=== PATIENT | female | born 1990 | race Caucasian/White ===

== ENCOUNTER → 2017-07-15 | Outpatient (CLI) | payer OTHER ==
--- NOTE | 2017-07-15 10:45 | XR ---
EXAMINATION TYPE: XR chest 2V DATE OF EXAM: 07/15/2017 COMPARISON: NONE TECHNIQUE: PA and lateral views submitted. HISTORY: Cough FINDINGS: The lungs are clear and there is no pneumothorax, pleural effusion, or focal pneumonia. IMPRESSION: 1. No acute process.
== END | disposition home or self-care (01) ==
LOC: RADXRMAIN 10:31
PROVIDERS: ATTEND Family Medicine
DX: R05 Cough (principal)
CPT/HCPCS: 71046

== ENCOUNTER → 2018-04-07 | Outpatient (CLI) | payer OTHER ==
--- NOTE | 2018-04-07 11:05 | US ---
EXAMINATION TYPE: US OB >= 14 wk fetus DATE OF EXAM: 04/07/2018 COMPARISON: None CLINICAL HISTORY: 036.63X0 Large for dates 3rd trimesterSize >D TECHNIQUE: Transabdominal (TA) GESTATIONAL AGE / DATING Physician Established: (39 weeks/0 days) EDC: 04/14/2018 Dates by Current Scan: (38 weeks/1 days) EDC: 04/20/2018 Beta HCG (if available): Not available at this time SURVEY IUP: Single PLACENTA: Fundal PREVIA: No Previa JED: 23.5 cm Polyhydramnios CERVICAL LENGTH (transabdominal: norm > 3.0cm): 3.1 cm BIOMETRY PRESENTATION: Vertex BPD: 10.4 cm Unable to date, OOR > 97% HC: 34.7 cm 40 weeks / 1 days AC: 33.7 cm 37 weeks / 4 days FL: 7.4 cm 37 weeks / 4 days ESTIMATED WEIGHT IN GRAMS: 3514 grams ESTIMATED WEIGHT IN LBS/OZ: 7 lbs. 12 oz. WEIGHT PERCENTAGE BASED ON ESTABLISHED DATES: 57.2% HC/AC: 1.0 Normal FL/AC: 21.8 Normal HEART RATE: 149 bpm RHYTHM: Normal IMPRESSION: Single live IUP measuring 38 weeks 1 day
== END ==
LOC: RADUSWWP 10:22
PROVIDERS: ATTEND Obstetrics & Gynecology
DX: O36.63X0 Maternal care for excessive fetal growth, third trimester, not applicable or unspecified (principal); Z3A.38 38 weeks gestation of pregnancy
CPT/HCPCS: 76805

== ENCOUNTER 2018-04-14 09:18 | Inpatient (IN) | payer OTHER ==
[2018-04-14] MEDS ORDERED: METHYLERGONOVINE 0.2 MG/ML 1 ML AMP IM PRN (09:43)
[2018-04-14] MEDS ORDERED: OXYTOCIN 10 UNIT/ML 1 ML VIAL IM PRN (09:43)
[2018-04-14] MEDS ORDERED: LIDOCAINE 0.5% (PF) 5 MG/ML (50 ML SDV) SQ PRN (09:43)
[2018-04-14] MEDS ORDERED: TERBUTALINE 1 MG/ML VIAL SQ PRN (09:43)
[2018-04-14] MEDS ORDERED: CARBOPROST TROMETHAMINE 250 MCG/ML 1 ML AMP IM PRN (09:43)
[2018-04-14] MEDS ORDERED: LACTATED RINGERS 1,000 ML IV SCH (09:45)
[2018-04-14] MEDS ORDERED: OXYTOCIN 20 UNITS/1000 ML NS 1,000 ML IV SCH ×2 (09:45→13:45)
[2018-04-14 10:06] VITALS: BMI 29.9
[2018-04-14 10:47] LABS: Basophils % (A) 0 %; Eosinophils % (A) 0 %; HCT 45.1 % (34.0-46.0); HGB 14.4 gm/dL (11.4-16.0); Lymphocytes # (A) 2.1 k/uL (1.0-4.8); Lymphocytes % (A) 21 %; MCH 29.9 pg (25.0-35.0); MCHC 31.9 g/dL (31.0-37.0); MCV 93.9 fL (80.0-100.0); Mean Platelet Volume 8.8; Monocytes # (A) 0.4 k/uL (0-1.0); Monocytes % (A) 4 %; Neutrophils # (A) 6.9 k/uL (1.3-7.7); Neutrophils % (A) 71 %; Platelet Count 163 k/uL (150-450); RBC 4.81 m/uL (3.80-5.40); WBC 9.8 k/uL (3.8-10.6)
[2018-04-14] MEDS ORDERED: ceFAZolin IN SWFI 2 GM/20 ML SYRINGE IVP ONE (12:41)
[2018-04-14] MEDS ORDERED: CITRIC ACID-SODIUM CITRATE 15 ML CUP PO ONE (12:41)
--- NOTE | 2018-04-14 12:48 | P.HPOB ---
History of Present Illness H&P Date: 04/14/18 Chief Complaint: Leaking of fluid. This patient is a pleasant 28-year-old 1 para 0 female estimated date of confinement 04/14/2018 estimated gestational age 40-0/7 weeks gestation admitted to labor and delivery from my office with spontaneous rupture membranes at about 6:00 this morning. Patient's care has been uncomplicated. I was watching her for excessive growth however her last ultrasounds of the baby is approximately 7 lbs. 12 oz. Patient positive amnio sure this morning. Now presents for delivery. Review of Systems Gastrointestinal: Reports heartburn Genitourinary: Reports Menstruation: Reports amenorrhea Past Medical History Past Medical History: Asthma History of Any Multi-Drug Resistant Organisms: None Reported Past Surgical History: No Surgical Hx Reported Past Anesthesia/Blood Transfusion Reactions: No Reported Reaction Past Psychological History: Anxiety Additional Psychological History / Comment(s): not medicated Smoking Status: Never smoker Past Alcohol Use History: None Reported Past Drug Use History: None Reported - Past Family History Father Family Medical History: Cancer, Thyroid Disorder Additional Family Medical History / Comment(s): prostate cancer Mother Family Medical History: Cancer Additional Family Medical History / Comment(s): breast cancer Sister(s) Family Medical History: CVA/TIA, Seizure Disorder Medications and Allergies Home Medications Medication Instructions Recorded Confirmed Type Pnv,Calcium 72/Iron/Folic Acid 1 each PO DAILY 04/14/18 04/14/18 History [ Plus Tablet] Allergies Allergy/AdvReac Type Severity Reaction Status Date / Time No Known Allergies Allergy Verified 04/14/18 09:26 Exam Vital Signs Temp Pulse Resp BP Pulse Ox 04/14/18 09:40 97.9 F 88 16 131/81 98 Intake and Output 04/13/18 04/14/18 04/14/18 22:59 06:59 14:59 Other: Weight 89.358 kg - OBG Physical Exam Abdomen: bowel sounds normal, no diffuse tenderness, no bruit present, no guarding noted, no hepatomegaly, no splenomegaly, no mass Vulva: both: normal Vagina: Gross rupture membranes Cervix: no lesion (Cervix is closed fingertip external os.), no discharge Uterus: enlarged (Fundal height is 39 cm) Results blood work shows she is O positive, rubella immune, RPR nonreactive, HIV nonreactive, hepatitis B is negative, rubella is immune, group B strep was negative, Glucola was normal. Result Diagrams: 04/14/18 10:27 Assessment and Plan (1) 40 weeks gestation of Narrative/Plan: This is a pleasant 28-year-old 1 para 0 female 40-0/7 weeks gestation with premature rupture membranes at 6:00 this morning patient at this point is very remote from delivery and she is having some tachycardia of unknown etiology. I discussed in detail my concerns with the patient and her about the tachycardia and the fact that we're remote from delivery and plans this time is to deliver by section. Patient does understand the surgery and risks including risks of infection, bleeding, possible injury bowel , bladder, vessels, and/or other organs. All the patient's questions are answered and a written consent is obtained. Current Visit: Yes Status: Acute Code(s): Z3A.40 - 40 WEEKS GESTATION OF SNOMED Code(s): 23119284 (2) Premature rupture of membranes Current Visit: Yes Status: Acute Code(s): O42.90 - TOM ROM, 7TH0 BETW RUPT & ONST LABR, UNSP WEEKS OF GEST SNOMED Code(s): 96706914
[2018-04-14] MEDS ORDERED: MORPHINE SULFATE (PF) 0.3 MG/0.3 ML SYR ONE (12:58)
[2018-04-14] MEDS ORDERED: DEXAMETHASONE SOD PHOS (MDV) 100 MG/10 ML VIAL ONE (12:58)
[2018-04-14] MEDS ORDERED: ONDANSETRON 4 MG/2 ML VIAL ONE (12:58)
[2018-04-14] MEDS ORDERED: OXYTOCIN 10 UNIT/ML 1 ML VIAL ONE (12:58)
[2018-04-14] MEDS ORDERED: LACTATED RINGERS 1,000 ML BAG IV ONE (12:58)
[2018-04-14] MEDS ORDERED: PHENYLEPHRINE-0.9% NACL SYG 1 MG/10 ML SYRINGE ONE (12:58)
[2018-04-14] MEDS ORDERED: NALBUPHINE 10 MG/ML (1 ML AMP) ONE (12:58)
[2018-04-14] MEDS ORDERED: ZOLPIDEM 5 MG TAB PO PRN (13:42)
[2018-04-14] MEDS ORDERED: HYDROcodone/APAP 5-325MG 1 EACH TAB PO PRN (13:42)
[2018-04-14] MEDS ORDERED: METOCLOPRAMIDE 5 MG/ML 2 ML VIAL IVP PRN (13:42)
[2018-04-14] MEDS ORDERED: diphenhydrAMINE 25 MG CAP PO PRN (13:42)
[2018-04-14] MEDS ORDERED: ACETAMINOPHEN TAB 325 MG TAB PO PRN (13:42)
[2018-04-14] MEDS ORDERED: NALOXONE 0.4 MG/ML 1 ML VIAL IV PRN (13:42)
[2018-04-14] MEDS ORDERED: ONDANSETRON 4 MG/2 ML VIAL IVP PRN (13:42)
[2018-04-14] MEDS ORDERED: LANOLIN CREAM 5 GM TUBE TOPICAL PRN (13:42)
[2018-04-14] MEDS ORDERED: KETOROLAC 30 MG/ML 1 ML VIAL IVP PRN (13:42)
[2018-04-14] MEDS ORDERED: diphenhydrAMINE 50 MG/ML 1 ML VIAL IVP PRN (13:42)
[2018-04-14] MEDS ORDERED: SIMETHICONE 80 MG CHEWABLE PO PRN (13:42)
--- NOTE | 2018-04-14 13:49 | P.OP ---
Date of Procedure: 04/14/18 Preoperative Diagnosis: #1: 40-0/7 weeks . #2: Premature rupture membranes. #3: tachycardia remote from delivery Postoperative Diagnosis: Same Procedure(s) Performed: Primary low transverse section Anesthesia: spinal Surgeon: Hang Bermeo Skin Pass Operator #1: Hector Bernstein Estimated Blood Loss (ml): 800 Pathology: other (Placenta) Condition: stable Disposition: floor Indications for Procedure: Please see dictated H&P for intimate details of this patient's admission. Brief summary is a pleasant 28-year-old 1 para 0 female 40-0/7 weeks gestation admitted from my office this morning with premature rupture membranes. Patient's cervix was not dilated and she undergoes Pitocin induction of labor. Patient does have some tachycardia to 170s 180s with acceleration 190s that does not resolve. Since she is remote from delivery we discussed the concern for the tachycardia in plan to proceed with delivery by section. Patient does understand the surgery and risks including risks of infection, bleeding, possible injury bowel, bladder, vessels , and/or other organs. All the patient's questions are answered written consent is obtained. Operative Findings: This was a vigorous viable male Apgars 9 and 9 delivery time was 1316 hrs. Infant has spontaneous respirations and good cry and grossly appeared normal with the exception of some foreskin abnormalities. Description of Procedure: This patient is taken to the operating room. She previously had a Gaston catheter placed to straight drain. Patient is sat up and spinal anesthetic is administered without incident. With adequate level of anesthesia she has abdominal prep and drape. Scalpels and taken Pfannenstiel skin incision is then made. A second scalpel is taken down the fascia the fascia scored with a knife. Fascial incision extended bilaterally using the Harper scissors. Fascia is then dissected off the rectus muscle separately. Rectus muscles are the peritoneum identified and entered sharply. Peritoneal incision extended superior and inferior without difficulty. Bladder blade is then placed. Bladder peritoneum was then made with Metzenbaum scissors. Scalpels and taken low transverse uterine incision is made. Using a hemostat I enter the uterine cavity bluntly and there is loss of sclera fluid. This incision is then extended bluntly. Infant's head is then guided through the incision with fundal pressure. Mouth and nares are bulb suctioned. We then have deliver the rest this 's body. This is a vigorous viable male infant Apgars are 9 and 9 delivery time is 1316 hrs. After delivery of the infant the umbilical cord is doubly clamped and cut appears to be trivascular. The placenta is then manually extracted intact. Uterus is then externalized and the edges demarcated with Swenson clamps. Uterine incision closed using 0 Vicryl running locked fashion 2 layers. Excellent hemostasis is noted. Bladder peritoneum was then reapproximated using a 3-0 Vicryl. Excess fluid is removed from the pelvis. Uterus tubes and ovaries appear normal for term gestation. Uterus placed back into the abdomen. Parietal peritoneum was then closed using 0 Vicryl running fashion. Rectus muscles reapproximated using 0 Vicryl ruptured fashion. Fascial incision then closed using 0 PDS. Fascial incision is intact and hemostatic. Subcutaneous tissues and closed using a 3-0 Vicryl. Skin is and closed using lior. All counts are correct 3. There are no complications. Infant and mother taken the birthing suite in satisfactory condition.
[2018-04-14 15:23] LABS: Albumin 3.3 g/dL (3.5-5.0); Bilirubin,Unconjugated 0.5 mg/dL (0.0-1.1); Total Bilirubin 0.5 mg/dL (0.2-1.3); Total Protein 5.9 g/dL (6.3-8.2); Uric Acid 5.1 mg/dL (3.7-7.4)
[2018-04-14 17:17] LABS: Appearance,Urine Clear (Clear); Bacteria,Urine Rare /hpf; Bilirubin,Urine Negative (Negative); Blood,Urine Negative (Negative); Color,Urine Yellow; Glucose,Urine (UA) Negative (Negative); Ketones,Urine 1+ (Negative); Leukocyte Esterase,Urine Trace (Negative); Mucus,Urine Rare /hpf; Nitrite,Urine Negative (Negative); PH, Urine 6.5 (5.0-8.0); Protein,Urine Negative (Negative); RBC,Urine 1 /hpf (0-5); Specific Gravity,Urine 1.009 (1.001-1.035); Squamous Epithelial Cell,Urine <1 /hpf (0-4); Urobilinogen,Urine <2.0 mg/dL (<2.0); WBC,Urine 2 /hpf (0-5)
[2018-04-14] MEDS: SENNOSIDES-DOCUSATE SODIUM 1 EACH TAB PO SCH (21:10)
[2018-04-14] MEDS: LACTATED RINGERS 1,000 ML IV SCH (21:10)
--- NOTE | 2018-04-15 06:21 | P.PNOBGPC ---
Subjective - Subjective Patient reports: Reports appetite normal, Reports voiding normally, Reports pain well controlled, Reports ambulating normally : doing well Objective - Vital Signs Latest vital signs: Vital Signs Temp Pulse Resp BP Pulse Ox 04/15/18 04:00 97.9 F 80 16 149/76 04/15/18 00:00 98.4 F 72 16 116/73 04/14/18 20:00 98.3 F 80 18 121/62 98 04/14/18 15:41 78 18 115/56 97 04/14/18 15:08 97.8 F 18 124/60 97 04/14/18 14:42 98.3 F 82 18 118/69 94 L 04/14/18 14:27 79 18 120/56 98 04/14/18 14:12 82 18 161/70 100 04/14/18 13:57 87 18 106/55 97 04/14/18 13:42 98.2 F 90 18 127/67 95 04/14/18 09:40 97.9 F 88 16 131/81 98 Intake and Output 04/14/18 04/14/18 04/15/18 14:59 22:59 06:59 Intake Total 1000 Output Total 1100 250 Balance -100 -250 Intake: Intake, IV Titration 1000 Amount Lactated Ringers 1,000 ml 1000 @ 125 mls/hr IV .Q8H [facility] Rx#:[id number] Output: Urine 1100 250 Uretheral (Gaston) 700 Other: Voiding Method Indwelling Catheter Indwelling Catheter # Voids 0 Weight 89.358 kg - Exam Lungs: bilateral: normal Chest: Normal S1, Normal S2 Extremities: Present: normal Abdomen: Present: normal appearance, soft. Absent: distention, tenderness Incision: Present: normal, dry, intact Uterus: Present: normal, firm - Labs Labs: Abnormal Lab Results - Last 24 Hours (Table) 04/14/18 04/14/18 Range/Units 14:28 14:59 Alkaline Phosphatase 163 H (38-126) U/L Total Protein 5.9 L (6.3-8.2) g/dL Albumin 3.3 L (3.5-5.0) g/dL Urine Ketones 1+ H (Negative) Ur Leukocyte Esterase Trace H (Negative) Urine Bacteria Rare H (None) /hpf Urine Mucus Rare H (None) /hpf Assessment and Plan Assessment: Postoperative day #1. Patient is resting without complaints. Vital signs are stable she's afebrile. Uterus is firm nontender she has normal lochia. Her incision is intact and dry. CBC is pending at this time. Plan today is to advance to regular diet, encourage ambulation, allow the patient to shower, and check a CBC. We will continue routine postoperative care. (1) 40 weeks gestation of Current Visit: Yes Status: Acute Code(s): Z3A.40 - 40 WEEKS GESTATION OF SNOMED Code(s): 89802028 (2) Premature rupture of membranes Current Visit: Yes Status: Acute Code(s): O42.90 - TOM ROM, 7TH0 BETW RUPT & ONST LABR, UNSP WEEKS OF GEST SNOMED Code(s): 09339118
--- NOTE | 2018-04-15 06:26 | P.MSEPDOC ---
Presenting Problems - Arrival Data Date of Arrival on Unit: 04/14/18 Time of Arrival on Unit: 09:39 Mode of Transport: Bed - Complaint OB-Reason for Admission/Chief Complaint: Rule Out SROM Comment: gush of fluid at 0600 Medical History - Information : 1 Para: 0 Term: 0 : 0 Abortions: Spontaneous or Elective: 0 Number of Living Children: 0 - Gestational Age Gestational Age by QUIN (wks/days): 40 Weeks and 0 Days Review of Systems - Review of Systems Constitutional: No problems Breast: No problems ENT: No problems Cardiovascular: No problems Respiratory: No problems Gastrointestinal: No problems Genitourinary: No problems Musculoskeletal: No problems Neurological: No problems Skin: No problems Vital Signs - Temperature Temperature: 97.9 F Temperature Source: Oral - Pulse Right Pulse Rate: 80 Pulse Assessment Method: Automatic Cuff - Respirations Respiratory Rate: 16 Oxygen Delivery Method: Room Air - Blood Pressure Right Arm Blood Pressure: 149/76 Blood Pressure Mean: 100 Blood Pressure Source: Automatic Cuff Medical Screen Scoring (Pre) - Cervical Exam Dilation: Exam Deferred Effacement: Exam Deferred - Uterine Contractions Frequency: > 5 minutes apart = 1 Duration: > 40 seconds = 2 Intensity: N/A - Maternal Vital Signs Maternal Temperature: N/A Maternal Blood Pressure: N/A Signs of Preeclampsia: N/A Maternal Respirations: N/A - Pain Assessment Pain Scale Used: Numeric (1 - 10) Pain Intensity: 0 Pain Management Goal: 3 - Total Score Total Score (Pre): 3 - Level of Risk Level of Risk: Low (0-5) Physician Notification (Pre) - Physician Notified Physician Notified Date: 04/14/18 Physician Notified Time: 09:41 Physician/Practitioner Notifed:: Dr Bermeo - Notification Comment Comment: reported on +amnisure. orders to admit, start iv, start pit. call with any needs. Disposition - Disposition OB Disposition: Admit Transferred to:: st 4 I agree with the RN Medical Screening Exam: Yes Risk & Benefit of care provided described in d/c instruction: Yes Diagnosis: ENCOUNTER FOR FULL-TERM UNCOMPLICATED DELIVERY
[2018-04-15 07:39] LABS: Basophils % (A) 0 %; Eosinophils % (A) 0 %; HCT 43.3 % (34.0-46.0); HGB 13.4 gm/dL (11.4-16.0); Lymphocytes # (A) 2.1 k/uL (1.0-4.8); Lymphocytes % (A) 14 %; MCH 29.3 pg (25.0-35.0); MCV 94.6 fL (80.0-100.0); Mean Platelet Volume 9.5; Monocytes # (A) 0.6 k/uL (0-1.0); Monocytes % (A) 4 %; Neutrophils # (A) 12.2 k/uL (1.3-7.7); Neutrophils % (A) 81 %; Platelet Count 144 k/uL (150-450); RBC 4.58 m/uL (3.80-5.40); RDW 13.1 % (11.5-15.5); WBC 15.1 k/uL (3.8-10.6)
--- NOTE | 2018-04-15 09:07 | P.PN ---
Progress Note - Text Progress Note Date: 04/15/18 28-year-old female status post section with Duramorph spinal. Postop day #1. Patient doing well no motor sensory deficits. Mild pruritus, and bleeding well, tolerating diet.
[2018-04-15] MEDS: IBUPROFEN 600 MG TAB PO PRN ×2 (11:41→22:01)
[2018-04-15] MEDS: SENNOSIDES-DOCUSATE SODIUM 1 EACH TAB PO SCH ×2 (11:41→23:56)
[2018-04-15 16:25] VITALS: RESP 16
[2018-04-15] MEDS: LACTATED RINGERS 1,000 ML IV SCH (21:18)
[2018-04-16 00:02] VITALS: TEMP 98.1
--- NOTE | 2018-04-16 06:40 | P.PNOBGPC ---
Subjective - Subjective Patient reports: Reports appetite normal, Reports voiding normally, Reports pain well controlled, Reports ambulating normally : doing well Objective - Vital Signs Latest vital signs: Vital Signs Temp Pulse Resp BP Pulse Ox 04/16/18 00:00 98.1 F 85 16 134/85 100 04/15/18 16:00 97.7 F 85 16 106/67 99 04/15/18 12:00 97.9 F 71 18 113/67 97 04/15/18 08:00 98 F 124 H 16 124/84 99 Intake and Output 04/15/18 04/15/18 04/16/18 14:59 22:59 06:59 Output Total 400 Balance -400 Output: Urine 400 Other: # Voids 1 1 1 - Exam Lungs: bilateral: normal Chest: Normal S1, Normal S2 Extremities: Present: normal Abdomen: Present: normal appearance, soft. Absent: distention, tenderness Incision: Present: normal, dry, intact Uterus: Present: normal, firm - Labs Labs: Abnormal Lab Results - Last 24 Hours (Table) 04/15/18 Range/Units 06:48 WBC 15.1 H (3.8-10.6) k/uL Plt Count 144 L (150-450) k/uL Neutrophils # 12.2 H (1.3-7.7) k/uL Assessment and Plan Assessment: Postoperative day #2. Patient is resting without complaints. Vital signs are stable and she is afebrile. Hemoglobin was normal. Patient is tolerating regular diet, urinating, ambulating without difficulty. Patient wishes to go home today. My impression is a normal course. Plan is to continue routine care and discharge home later today. (1) 40 weeks gestation of Current Visit: Yes Status: Acute Code(s): Z3A.40 - 40 WEEKS GESTATION OF SNOMED Code(s): 34764629 (2) Premature rupture of membranes Current Visit: Yes Status: Acute Code(s): O42.90 - TOM ROM, 7TH0 BETW RUPT & ONST LABR, UNSP WEEKS OF GEST SNOMED Code(s): 62443117
--- NOTE | 2018-04-16 06:44 | P.DS ---
Providers Date of admission: 04/14/18 09:42 Expected date of discharge: 04/16/18 Attending physician: Hang Bermeo Primary care physician: Stated None - Discharge Diagnosis(es) (1) 40 weeks gestation of Current Visit: Yes Status: Acute (2) Premature rupture of membranes Current Visit: Yes Status: Acute Hospital Course: Please see dictated H&P for intimate details of this patient's admission. Brief summary this pleasant 28-year-old 1 para 0 female 40-0/7 weeks admitted to labor and delivery with spontaneous rupture membranes. Patient developed some tachycardia and subsequent want a primary low transverse section for viable male infant. Please see dictated delivery note. Postoperative 2 patient's felt be stable for discharge home follow up with me in 1 week. Procedures: Primary low transverse section Patient Condition at Discharge: Good Plan - Discharge Summary New Discharge Prescriptions: New Ibuprofen [Motrin] 600 mg PO Q6HR PRN #40 tab PRN Reason: Mild Pain Or Fever >= 100.5 No Action Pnv,Calcium 72/Iron/Folic Acid [ Plus Tablet] 1 each PO DAILY Discharge Medication List Pnv,Calcium 72/Iron/Folic Acid [ Plus Tablet] 1 each PO DAILY 04/14/18 [ History] Ibuprofen [Motrin] 600 mg PO Q6HR PRN #40 tab 04/16/18 [Rx] Follow up Appointment(s)/Referral(s): Hang Bermeo MD [STAFF PHYSICIAN] - 04/26/18 8:30 am (Patient also has a visit on May 26 at 11:15 AM.) Patient Instructions/Handouts: (DC) Activity/Diet/Wound Care/Special Instructions: No strenuous activity or heavy lifting for 6 weeks. No intercourse or anything per vagina for 6 weeks. Please call if any fever, chills, excessive vaginal bleeding, and/or abdominal pain. Discharge Disposition: HOME SELF-CARE
[2018-04-16] MEDS: IBUPROFEN 600 MG TAB PO PRN (09:16)
[2018-04-16] MEDS: SENNOSIDES-DOCUSATE SODIUM 1 EACH TAB PO SCH (09:16)
[2018-04-16 09:52] VITALS: BP 132/70; PULSE 89
== END 2018-04-16 11:15 | disposition home or self-care (01) | DRG 788 ==
LOC: FBPOP 09:18 → 4FBP 09:42
PROVIDERS: ADMIT Obstetrics & Gynecology; ATTEND Obstetrics & Gynecology
PROC: 3E033VJ Introduction of Other Hormone into Peripheral Vein, Percutaneous Approach (ICD-10-PCS; 2018-04-14)
PROC: 10D00Z1 Extraction of Products of Conception, Low, Open Approach (ICD-10-PCS; principal; 2018-04-14 12:39)
DX: O42.02 Full-term premature rupture of membranes, onset of labor within 24 hours of rupture (principal); Z3A.40 40 weeks gestation of pregnancy; Z37.0 Single live birth; O76 Abnormality in fetal heart rate and rhythm complicating labor and delivery; O99.52 Diseases of the respiratory system complicating childbirth; J45.909 Unspecified asthma, uncomplicated; O99.344 Other mental disorders complicating childbirth; F41.9 Anxiety disorder, unspecified; L29.9 Pruritus, unspecified; Z79.899 Other long term (current) drug therapy; Z80.3 Family history of malignant neoplasm of breast; Z80.42 Family history of malignant neoplasm of prostate; Z83.49 Family history of other endocrine, nutritional and metabolic diseases; Z82.3 Family history of stroke; Z82.0 Family history of epilepsy and other diseases of the nervous system
CPT/HCPCS: 59025; 80076; 81001; 84112; 84550; 85025; 86850; 86900; 86901; 88307; 99213

== ENCOUNTER 2019-09-21 06:04 | Inpatient (IN) | payer OTHER ==
[2019-09-13 11:21] VITALS: BMI 30.9
--- NOTE | 2019-09-20 06:46 | P.HPOB ---
History of Present Illness H&P Date: 09/20/19 Chief Complaint: Repeat section This patient is a pleasant 29-year-old 2 para 1 female estimated date of confinement 09/26/2019 estimated gestational age 39-2/7 weeks who presents to labor and delivery for requested repeat section. History is such that patient had a primary section last time for ruptured membranes and tachycardia with an unfavorable cervix. Patient this as requested repeat section unless she went into labor. Patient now presents for the surgery. care has been uncomplicated. Review of Systems Genitourinary: Reports Menstruation: Reports amenorrhea Past Medical History Past Medical History: Asthma History of Any Multi-Drug Resistant Organisms: None Reported Past Surgical History: Section Past Anesthesia/Blood Transfusion Reactions: No Reported Reaction Past Psychological History: No Psychological Hx Reported Smoking Status: Never smoker Past Alcohol Use History: None Reported Past Drug Use History: None Reported - Past Family History Father Family Medical History: Cancer, Thyroid Disorder Additional Family Medical History / Comment(s): prostate cancer Mother Family Medical History: Cancer Additional Family Medical History / Comment(s): breast cancer Sister(s) Family Medical History: CVA/TIA, Seizure Disorder Additional Family Medical History / Comment(s): CVA Medications and Allergies Home Medications Medication Instructions Recorded Confirmed Type Pnv,Calcium 72/Iron/Folic Acid 1 each PO DAILY 04/14/18 09/13/19 History [ Plus Tablet] Allergies Allergy/AdvReac Type Severity Reaction Status Date / Time No Known Allergies Allergy Verified 09/13/19 11:14 Exam - OBG Physical Exam Abdomen: bowel sounds normal, no diffuse tenderness, no bruit present, no guarding noted, no hepatomegaly, no splenomegaly, no mass Vulva: both: normal Vagina: normal moisture, no discharge Cervix: no lesion, no discharge Uterus: enlarged (Fundal height is consistent with a term ) Results blood work shows she is O positive, rubella immune, RPR nonreactive, hepatitis B negative, group B strep was negative, Glucola was normal, ultrasounds have been normal. Assessment and Plan Assessment: This is a pleasant 29-year-old 2 para 1 female estimated gestational age 39-2/7 weeks who presents to labor and delivery for requested repeat section. Plan is repeat low transverse section. Patient I have discussed the surgery and risks in detail including risks of infection, bleeding, possible injury to bowel, bladder, vessels, and/or other organs. Also discussed risk of DVT and pulmonary embolism. All the patient's questions are answered and a written consent is obtained. (1) 39 weeks gestation of Status: Acute Code(s): Z3A.39 - 39 WEEKS GESTATION OF SNOMED Code(s): 32744718 (2) Previous delivery affecting Status: Acute Code(s): O34.219 - MATERNAL CARE FOR UNSP TYPE SCAR FROM PREVIOUS DEL SNOMED Code(s): 320020735
[2019-09-21] MEDS ORDERED: LACTATED RINGERS 1,000 ML IV ONE ×2 (06:21→07:06)
[2019-09-21] MEDS ORDERED: CITRIC ACID-SODIUM CITRATE 15 ML CUP PO ONE ×2 (06:21→07:06)
[2019-09-21] MEDS ORDERED: LACTATED RINGERS 1,000 ML IV SCH ×3 (06:21→07:15)
[2019-09-21] MEDS ORDERED: HYDROcodone/APAP 5-325MG 1 EACH TAB PO PRN (07:04)
[2019-09-21] MEDS ORDERED: ACETAMINOPHEN TAB 325 MG TAB PO PRN (07:04)
[2019-09-21] MEDS ORDERED: ONDANSETRON 4 MG/2 ML VIAL IVP PRN ×2 (07:04→08:30)
[2019-09-21] MEDS ORDERED: diphenhydrAMINE 25 MG CAP PO PRN (07:04)
[2019-09-21] MEDS ORDERED: NALOXONE 0.4 MG/ML 1 ML VIAL IV PRN (07:04)
[2019-09-21] MEDS ORDERED: diphenhydrAMINE 50 MG/ML 1 ML VIAL IVP PRN ×2 (07:04→08:30)
[2019-09-21] MEDS ORDERED: OXYTOCIN 20 UNITS/1000 ML NS 1,000 ML IV SCH (07:04)
[2019-09-21] MEDS ORDERED: METOCLOPRAMIDE 5 MG/ML 2 ML VIAL IVP PRN (07:04)
[2019-09-21] MEDS ORDERED: KETOROLAC 30 MG/ML 1 ML VIAL IVP PRN ×2 (07:04→08:30)
[2019-09-21] MEDS ORDERED: SIMETHICONE 80 MG CHEWABLE PO PRN (07:04)
[2019-09-21] MEDS ORDERED: ZOLPIDEM 5 MG TAB PO PRN (07:04)
[2019-09-21 07:26] LABS: Basophils % (A) 0 %; Eosinophils # (A) 0.1 k/uL (0-0.7); Eosinophils % (A) 1 %; HCT 41.2 % (34.0-46.0); HGB 13.8 gm/dL (11.4-16.0); Lymphocytes # (A) 2.2 k/uL (1.0-4.8); Lymphocytes % (A) 22 %; MCHC 33.5 g/dL (31.0-37.0); MCV 92.4 fL (80.0-100.0); Mean Platelet Volume 9.3; Monocytes # (A) 0.4 k/uL (0-1.0); Monocytes % (A) 4 %; Neutrophils # (A) 6.7 k/uL (1.3-7.7); Neutrophils % (A) 70 %; Platelet Count 188 k/uL (150-450); RBC 4.46 m/uL (3.80-5.40); RDW 13.1 % (11.5-15.5); WBC 9.6 k/uL (3.8-10.6)
[2019-09-21] MEDS ORDERED: ONDANSETRON 4 MG/2 ML VIAL ONE (07:41)
[2019-09-21] MEDS ORDERED: MORPHINE SULFATE (PF) 0.3 MG/0.3 ML SYR ONE (07:41)
[2019-09-21] MEDS ORDERED: NALBUPHINE 10 MG/ML (1 ML AMP) ONE (07:41)
[2019-09-21] MEDS ORDERED: OXYTOCIN 10 UNIT/ML 1 ML VIAL ONE (07:41)
[2019-09-21] MEDS ORDERED: KETOROLAC 30 MG/ML 1 ML VIAL ONE (07:41)
[2019-09-21] MEDS ORDERED: PHENYLEPHRINE-0.9% NACL SYG 1 MG/10 ML SYRINGE ONE (07:41)
[2019-09-21] MEDS ORDERED: NALBUPHINE 10 MG/ML (1 ML AMP) IV PRN (08:30)
--- NOTE | 2019-09-21 08:30 | P.OP ---
Date of Procedure: 09/21/19 Preoperative Diagnosis: #1: 39-2/7 week intrauterine . #2: Previous section desires repeat Postoperative Diagnosis: Same Procedure(s) Performed: Repeat low transverse section Anesthesia: spinal Surgeon: Hang Bermeo Wad Printing Machine Operator #1: Linda Barlow Estimated Blood Loss (ml): 800 Pathology: none sent Condition: stable Disposition: observation Indications for Procedure: Please see dictated H&P for intimate details of this patient's admission. Brief summary this pleasant 29-year-old 2 para 1 female 39-2/7 week intrauterine presents to labor and delivery for elective repeat section. Patient's symptoms the surgery and risks and risks of infection, bleeding, possible injury bowel, bladder, vessels, and/or other organs. All the patient's questions have been answered and a written consent obtained. Operative Findings: This is a vigorous viable female infant Apgars 9 and 9 delivery time was 0800 hours. Infant has spontaneous respirations and good cry and grossly appears normal Description of Procedure: This patient has a Gaston catheter placed to straight drain. She is subsequently taken to the operating room where she sat up and spinal anesthetic is administered without incident. With an adequate level of anesthesia she has abdominal prep and drape. Scalpels and taken the previous Pfannenstiel incision is excised because it is keloid. This done a second scalpel is taken down the fascia and the fascia scored with a knife. Fascial incision extended bilaterally using Harper scissors. Fascia is dissected off the rectus muscles s harply. Peritoneum identified and entered sharply. Peritoneal incision extended superior and inferior without difficulty. Bladder blade is then placed. Bladder peritoneum was taken off the lower uterine segment without difficulty. Scalpels and taken low transverse uterine incision is then made. Using a hemostat I into the uterine cavity bluntly and there is loss of light meconium-stained fluid. This incision extended bluntly. 's head is then guided through the incision with fundal pressure. Mouth and nares are bulb suctioned and there is no evidence of a nuchal cord. With fundal pressure deliver the rest this 's body. This is a vigorous viable female Apgars 9 and 9 delivery time is 0800 hours. After delivery of the the umbilical cord is doubly clamped and cut appears to be trivascular. The placenta is then manually extracted intact. Uterus is then externalized uterine incision demarcated with Swenson clamps. Uterine incision closed using 0 Vi cryl running locked fashion 2 layers. Excellent hemostasis is noted. Bladder peritoneum was then reapproximated using a 3-0 Vicryl. Excess fluid is removed from the abdomen and pelvis. Uterus tubes and ovaries appear normal for term gestation. Uterus placed back into the abdomen. Parietal peritoneum was identified and closed using 0 Vicryl running fashion. Rectus muscle reapproximate 0 Vicryl interrupted fashion. Fascial incision then closed using 0 PDS running fashion. Fascial incision is intact and hemostatic. Subcutaneous tissues and closed in a 3-0 Vicryl. Skin is and closed using lior. All counts are correct 3. There are no complications. and mother are taken to the birthing suite in satisfactory condition
--- NOTE | 2019-09-22 06:06 | P.PNOBGPC ---
Subjective - Subjective Patient reports: Reports appetite normal, Reports voiding normally, Reports pain well controlled, Reports ambulating normally : doing well Objective - Vital Signs Latest vital signs: Vital Signs Temp Pulse Resp BP Pulse Ox 09/22/19 04:00 98.2 F 91 16 115/72 95 09/21/19 23:28 98.5 F 98 16 130/75 96 09/21/19 20:00 97.6 F 73 16 119/76 100 09/21/19 16:00 98.2 F 89 16 113/76 98 09/21/19 13:00 18 09/21/19 12:34 98.3 F 101 H 18 121/77 96 09/21/19 09:25 85 16 128/59 09/21/19 09:10 107 H 16 130/59 09/21/19 08:55 106 H 16 122/57 09/21/19 08:40 106 H 16 112/57 09/21/19 08:25 97.7 F 100 16 112/55 100 09/21/19 06:37 97.2 F L 108 H 16 134/84 99 Intake and Output 09/21/19 09/21/19 09/22/19 14:59 22:59 06:59 Intake Total 480 Output Total 800 1050 900 Balance -800 -1050 -420 Intake: Oral 480 Output: Urine 1050 900 Estimated Blood Loss 800 Other: # Voids 1 1 - Exam Lungs: bilateral: normal Chest: Normal S1, Normal S2 Extremities: Present: normal Abdomen: Present: normal appearance, soft. Absent: distention, tenderness Incision: Present: normal, dry, intact Uterus: Present: normal, firm Assessment and Plan Assessment: Postoperative day #1. Patient is resting without complaints. Vital signs are stable she's afebrile. Uterus is firm nontender she's having normal lochia, incision is intact and dry. CBC is pending at this time. Patient is ambulating and urinating without difficulty. Plan is to continue routine postoperative care. (1) 39 weeks gestation of Current Visit: No Status: Acute Code(s): Z3A.39 - 39 WEEKS GESTATION OF SNOMED Code(s): 50961590 (2) Previous delivery affecting Current Visit: No Status: Acute Code(s): O34.219 - MATERNAL CARE FOR UNSP TYPE SCAR FROM PREVIOUS DEL SNOMED Code(s): 854245014
[2019-09-22 06:51] LABS: Basophils % (A) 0 %; Eosinophils # (A) 0.1 k/uL (0-0.7); Eosinophils % (A) 1 %; HCT 37.9 % (34.0-46.0); HGB 12.6 gm/dL (11.4-16.0); Lymphocytes # (A) 1.5 k/uL (1.0-4.8); Lymphocytes % (A) 16 %; MCHC 33.2 g/dL (31.0-37.0); MCV 93.6 fL (80.0-100.0); Mean Platelet Volume 9.3; Monocytes # (A) 0.3 k/uL (0-1.0); Monocytes % (A) 3 %; Neutrophils % (A) 78 %; Platelet Count 155 k/uL (150-450); RBC 4.05 m/uL (3.80-5.40); RDW 13.2 % (11.5-15.5); WBC 9.1 k/uL (3.8-10.6)
[2019-09-22] MEDS: SENNOSIDES-DOCUSATE SODIUM 1 EACH TAB PO SCH ×2 (09:01→20:16)
[2019-09-22] MEDS: IBUPROFEN 600 MG TAB PO PRN ×2 (09:02→18:02)
--- NOTE | 2019-09-22 14:08 | P.PN ---
Progress Note - Text Progress Note Date: 09/22/19 Patient was seen at bedside. Patient is postop day 1 from with spi nal Duramorph. VAS score is 4/10. Patient denies side effects today, yesterday she had mild side effects in the form of nausea and itching. Lower extremity sensation and motor function is intact. Patient has ambulated.
--- NOTE | 2019-09-23 05:50 | P.PNOBGPC ---
Subjective - Subjective Patient reports: Reports appetite normal, Reports voiding normally, Reports pain well controlled, Reports ambulating normally : doing well Objective - Vital Signs Latest vital signs: Vital Signs Temp Pulse Resp BP Pulse Ox 09/23/19 00:00 97.8 F 80 16 135/69 09/22/19 20:00 97.8 F 89 16 127/64 97 09/22/19 16:00 97.8 F 82 16 132/76 09/22/19 08:00 98.4 F 88 14 110/69 - Exam Lungs: bilateral: normal Chest: Normal S1, Normal S2 Extremities: Present: normal Abdomen: Present: normal appearance, soft. Absent: distention, tenderness Incision: Present: normal, dry, intact Uterus: Present: normal, firm Assessment and Plan Assessment: Postoperative day #2. Patient is resting without complaints and wishes to go home. Vital signs are stable she is afebrile. Uterus is firm nontender she's having normal lochia. Incision is intact and dry. My impression is a normal course. Plan is to continue routine care discharge home later today (1) 39 weeks gestation of Current Visit: No Status: Acute Code(s): Z3A.39 - 39 WEEKS GESTATION OF SNOMED Code(s): 34460087 (2) Previous delivery affecting Current Visit: No Status: Acute Code(s): O34.219 - MATERNAL CARE FOR UNSP TYPE SCAR FROM PREVIOUS DEL SNOMED Code(s): 672712925
--- NOTE | 2019-09-23 05:55 | P.DS ---
Providers Date of admission: 09/21/19 06:04 Expected date of discharge: 09/23/19 Attending physician: Hang Bermeo Primary care physician: Stated None - Discharge Diagnosis(es) (1) 39 weeks gestation of Current Visit: No Status: Acute (2) Previous delivery affecting Current Visit: No Status: Acute Hospital Course: Please see dictated H&P for intimate details of this patient's admission. Brief summary pleasant 29-year-old 2 para 1 female 39-2/7 weeks gestation admitted to labor and delivery for elective repeat section. Patient goes above-named surgery for viable female . Please see dictated delivery note. Postoperative day #2 patient's felt be stable for discharge home follow up with me in 1 week Procedures: Repeat low transverse section Patient Condition at Discharge: Good Plan - Discharge Summary Discharge Rx Participant: No New Discharge Prescriptions: New Ibuprofen [Motrin] 600 mg PO Q6HR PRN #40 tab PRN Reason: Mild Pain Or Fever >= 100.5 HYDROcodone/APAP 5-325MG [[place] 5-325] 1 each PO Q4HR PRN #18 tab PRN Reason: Moderate Pain No Action Pnv,Calcium 72/Iron/Folic Acid [ Plus Tablet] 1 each PO DAILY Discharge Medication List Pnv,Calcium 72/Iron/Folic Acid [ Plus Tablet] 1 each PO DAILY 04/14/18 [History] HYDROcodone/APAP 5-325MG [[place] 5-325] 1 each PO Q4HR PRN #18 tab 09/23/19 [Rx] Ibuprofen [Motrin] 600 mg PO Q6HR PRN #40 tab 09/23/19 [Rx] Follow up Appointment(s)/Referral(s): Hang Bermeo MD [STAFF PHYSICIAN] - 09/29/19 9:15 am (Please see me on November 08 to 10:15 for visit as well.) Patient Instructions/Handouts: (DC) Activity/Diet/Wound Care/Special Instructions: No strenuous activities or heavy lifting for 6 weeks. No intercourse or anything per vagina for 6 weeks. Please call if any fever, chills, excessive vaginal bleeding, and/or abdominal pain. Discharge Disposition: HOME SELF-CARE
[2019-09-23] MEDS: IBUPROFEN 600 MG TAB PO PRN (08:15)
[2019-09-23] MEDS: SENNOSIDES-DOCUSATE SODIUM 1 EACH TAB PO SCH ×2 (08:16→08:22)
[2019-09-23 09:16] VITALS: BP 131/79; PULSE 87; RESP 18; TEMP 98.7
== END 2019-09-23 10:38 | disposition home or self-care (01) | DRG 788 ==
LOC: 4FBP 06:04
PROVIDERS: ADMIT Obstetrics & Gynecology; ATTEND Obstetrics & Gynecology
PROC: 10D00Z1 Extraction of Products of Conception, Low, Open Approach (ICD-10-PCS; principal; 2019-09-21 08:00)
DX: O34.211 Maternal care for low transverse scar from previous cesarean delivery (principal); O99.52 Diseases of the respiratory system complicating childbirth; J45.909 Unspecified asthma, uncomplicated; Z37.0 Single live birth; Z3A.39 39 weeks gestation of pregnancy; Z80.3 Family history of malignant neoplasm of breast; Z82.0 Family history of epilepsy and other diseases of the nervous system; Z82.3 Family history of stroke; Z80.42 Family history of malignant neoplasm of prostate
CPT/HCPCS: 85025; 86850; 86900; 86901

== ENCOUNTER 2021-05-13 05:54 | Inpatient (IN) | payer OTHER ==
[2021-05-08 11:41] VITALS: BMI 33.2
--- NOTE | 2021-05-09 18:38 | P.HPOB ---
History of Present Illness H&P Date: 05/09/21 Chief Complaint: Repeat , possible tubal ligation This patient is a pleasant 31-year-old 3 para 2 female estimated date of confinement 05/14/2021 estimated gestational age 39-6/7 weeks who presents to labor and delivery for elective repeat section. Patient's history is such that she's had 2 previous sections and desires repeat. Patient's care has been uncomplicated. Patient desires to have another child but did ask me that if her uterus for some reason was very thin her there are other confounding factors at the time of this delivery that she would want a tubal ligation. She understands this is permanent. Review of Systems Genitourinary: Reports Menstruation: Reports amenorrhea Past Medical History Past Medical History: Asthma Additional Past Medical History / Comment(s): CELIAC DISORDER History of Any Multi-Drug Resistant Organisms: None Reported Past Surgical History: Section Additional Past Surgical History / Comment(s): CS X 2 Past Anesthesia/Blood Transfusion Reactions: Postoperative Nausea & Vomiting (PONV) Past Psychological History: No Psychological Hx Reported Smoking Status: Never smoker Past Drug Use History: None Reported - Past Family History Father Family Medical History: Cancer, Thyroid Disorder Additional Family Medical History / Comment(s): prostate cancer Mother Family Medical History: Cancer Additional Family Medical History / Comment(s): breast cancer Sister(s) Family Medical History: CVA/TIA, Seizure Disorder Additional Family Medical History / Comment(s): CVA Medications and Allergies Home Medications Medication Instructions Recorded Confirmed Type Pnv,Calcium 72/Iron/Folic Acid 1 each PO DAILY 04/14/18 05/08/21 History [ Plus Tablet] Allergies Allergy/AdvReac Type Severity Reaction Status Date / Time No Known Allergies Allergy Verified 05/08/21 11:34 Exam - OBG Physical Exam Abdomen: bowel sounds normal, no diffuse tenderness, no bruit present, no guarding noted, no hepatomegaly, no splenomegaly, no mass Vulva: both: normal Vagina: normal moisture, no discharge Cervix: no lesion (Cervix is closed in the office), no discharge Uterus: enlarged (Fundal height is 39 cm) Results labs show she is O positive, rubella immune, RPR nonreactive, hepatitis B negative, HIV is nonreactive, Glucola was 83, group B strep was positive, most recent growth ultrasound showed 6 lbs. 6 oz. this was done on April 12. Assessment and Plan Assessment: This is a pleasant 31-year-old 3 para 2 female 39-6/7 weeks gestation who is admitted to labor and delivery for elective repeat section. Plan is repeat low transverse section. Patient only requests a tubal ligation and for some reason we were to find her uterus to be very thin or other confounding factors at the time of her surgery. Patient I discussed the surgery and risks including risks of infection, bleeding, possible injury to bowel, bladder, vessels, and/or other organs. All the patient's questions are answered and a written consent obtained. (1) Group B streptococcal carriage complicating Status: Acute Code(s): O99.820 - STREPTOCOCCUS B CARRIER STATE COMPLICATING SNOMED Code(s): 648892401309820 (2) 40 weeks gestation of Status: Acute Code(s): Z3A.40 - 40 WEEKS GESTATION OF SNOMED Code(s): 76789792 (3) Previous delivery affecting Status: Acute Code(s): O34.219 - MATERNAL CARE FOR UNSP TYPE SCAR FROM PREVIOUS DEL SNOMED Code(s): 441332921
[2021-05-13] MEDS ORDERED: LACTATED RINGERS 1,000 ML IV SCH (06:11)
[2021-05-13] MEDS ORDERED: CITRIC ACID-SODIUM CITRATE 15 ML CUP PO ONE (06:11)
[2021-05-13] MEDS ORDERED: LACTATED RINGERS 1,000 ML IV ONE (06:11)
[2021-05-13 06:55] LABS: Basophils % (A) 0 %; Eosinophils # (A) 0.1 k/uL (0-0.7); Eosinophils % (A) 1 %; HCT 40.4 % (34.0-46.0); HGB 13.2 gm/dL (11.4-16.0); Lymphocytes # (A) 2.1 k/uL (1.0-4.8); Lymphocytes % (A) 24 %; MCH 30.4 pg (25.0-35.0); MCHC 32.7 g/dL (31.0-37.0); MCV 93.1 fL (80.0-100.0); Mean Platelet Volume 9.8; Monocytes # (A) 0.4 k/uL (0-1.0); Monocytes % (A) 5 %; Neutrophils # (A) 5.8 k/uL (1.3-7.7); Neutrophils % (A) 67 %; Platelet Count 165 k/uL (150-450); RBC 4.34 m/uL (3.80-5.40); RDW 12.5 % (11.5-15.5); WBC 8.7 k/uL (3.8-10.6)
[2021-05-13] MEDS ORDERED: PHENYLEPHRINE-0.9% NACL SYG 1,000 MCG/10 ML SYRINGE ONE (07:55)
[2021-05-13] MEDS ORDERED: OXYTOCIN 30 UNITS/500 ML NS BAG IV ONE (07:55)
[2021-05-13] MEDS ORDERED: MORPHINE SULFATE (PF) 0.3 MG/0.3 ML SYR ONE (07:55)
[2021-05-13] MEDS ORDERED: ONDANSETRON 4 MG/2 ML VIAL ONE (07:55)
--- NOTE | 2021-05-13 08:48 | P.OP ---
Date of Procedure: 05/13/21 Preoperative Diagnosis: #1: 39-6/7 week intrauterine . #2: Previous section desires repeat Postoperative Diagnosis: Same Procedure(s) Performed: Repeat low transverse section Anesthesia: spinal Surgeon: Hang Bermeo Records Management Specialist #1: Jennifer Hammond Estimated Blood Loss (ml): 600 Pathology: none sent Condition: stable Disposition: floor Indications for Procedure: Please see dictated H&P for intimate details of this patient's admission. Brief summary this is a pleasant 31-year-old 3 para 2 female 39-6/7 weeks gestation admitted to labor and delivery for elective repeat section. Patient understands the surgery and risks and risks of infection, bleeding, possible injury bowel, bladder, vessels, and/or other organs. All the patient's questions are answered and a written consent is obtained. Operative Findings: This is a vigorous viable male Apgars 9 and 9 delivery time was 0816 hours. Patient normal appearing uterus tubes and ovaries. Description of Procedure: This patient has a Gaston catheter placed to straight drain. She is subsequently taken to the operating room where she has a spinal anesthetic administered without incident. With adequate level of anesthesia she has abdominal prep and drape. Scalpels and taken the previous Pfannenstiel incision is excised. Second scalpel is taken down the fascia and the fascia scored with a knife. Fascial incision extended bilaterally using the Harper scissors. Fascia is then dissected sharply off the rectus muscles. Rectus muscles are the peritoneum identified and entered sharply. Peritoneal incision extended superior and inferior without difficulty. Bladder blade is then placed. Bladder peritoneum was then taken off the lower uterine segment. Scalpels and taken low transverse uterine incision is made. Using a hemostat I into the uterine cavity bluntly and there is loss of clear fluid. This incision is extended bluntly and the infant's head was guided through the incision with fundal pressure. Mouth and nares are bulb suctioned. There is a nuchal cord 1 which is reduced. With this done and more fundal pressure with delivery the rest this 's body. This is a vigorous viable male Apgars 9 and 9 delivery time was 0816 hours. After delivery of the infant the umbilical cord is doubly clamped and cut appears to be trivascular. The placenta is then manually extracted intact. The uterus is then externalized and the uterine incision demarcated with Swenson clamps. Uterine incision is then closed in 0 Vicryl running locked fashion 2 layers in excellent hemostasis is noted. Bladder peritoneum was then reapproximated using a 3-0 Vicryl. The excess fluid is removed from the abdomen and pelvis. The uterus, tubes, ovaries appear normal for term gestation. Uterus placed back into the abdomen. With this done the parietal peritoneum identified and closed using 0 Vicryl running fashion. The rectal muscles are reapproximated in 0 Vicryl interrupted fashion. Fascia is then closed using 0 PDS. Fascial incision is intact and hemostatic. Subcutaneous tissues and closed using a 3-0 Vicryl. Skin is and closed using a 3-0 Vicryl on a Derek needle. Steri-Strips and sterile dressing are applied. All counts are correct 3. There are no complications. Infant and mother taken the birthing suite in satisfactory condition.
[2021-05-13] MEDS ORDERED: NALOXONE 0.4 MG/ML 1 ML VIAL IV PRN (08:56)
[2021-05-13] MEDS ORDERED: OXYTOCIN 30 UNITS/500 ML NS 30 UNIT in SALINE 1 500ML.BAG IV SCH (08:56)
[2021-05-13] MEDS ORDERED: ONDANSETRON 4 MG/2 ML VIAL IVP PRN (08:56)
[2021-05-13] MEDS ORDERED: ZOLPIDEM 5 MG TAB PO PRN (08:56)
[2021-05-13] MEDS ORDERED: LANOLIN CREAM 5 GM TUBE TOPICAL PRN (08:56)
[2021-05-13] MEDS ORDERED: ACETAMINOPHEN TAB 500 MG TAB PO PRN (08:56)
[2021-05-13] MEDS ORDERED: METOCLOPRAMIDE 5 MG/ML 2 ML VIAL IVP PRN (08:56)
[2021-05-13] MEDS ORDERED: diphenhydrAMINE 25 MG CAP PO PRN (08:56)
[2021-05-13] MEDS ORDERED: diphenhydrAMINE 50 MG/ML 1 ML VIAL IVP PRN (08:56)
[2021-05-13] MEDS ORDERED: IBUPROFEN 600 MG TAB PO PRN (08:56)
[2021-05-13] MEDS ORDERED: SIMETHICONE 80 MG CHEWABLE PO PRN (08:56)
[2021-05-13] MEDS: LACTATED RINGERS 1,000 ML IV SCH ×2 (10:15→19:00)
[2021-05-13] MEDS: SENNOSIDES-DOCUSATE SODIUM 1 EACH TAB PO SCH ×2 (11:02→20:32)
[2021-05-13] MEDS: KETOROLAC 30 MG/ML 1 ML VIAL IVP SCH ×3 (11:44→23:57)
[2021-05-13 21:19] VITALS: RESP 16
--- NOTE | 2021-05-14 06:27 | P.PNOBGPC ---
Subjective - Subjective Patient reports: Reports appetite normal, Reports voiding normally, Reports pain well controlled, Reports ambulating normally : doing well Objective - Vital Signs Latest vital signs: Vital Signs Temp Pulse Resp BP Pulse Ox 05/14/21 04:00 97.7 F 92 16 139/81 98 05/14/21 00:00 97.7 F 82 16 113/69 97 05/13/21 20:35 97.8 F 82 16 123/70 99 05/13/21 16:00 97.9 F 92 14 131/62 05/13/21 10:45 96.9 F L 89 14 114/60 98 05/13/21 10:15 90 14 111/62 99 05/13/21 09:45 93 14 108/61 99 05/13/21 09:30 96 16 112/56 98 05/13/21 09:15 88 16 110/52 99 05/13/21 09:00 97 14 113/53 98 05/13/21 08:45 97.2 F L 109 H 14 117/55 96 Intake and Output 05/13/21 05/13/21 05/14/21 14:59 22:59 06:59 Output Total 675 750 400 Balance -675 -750 -400 Output: Urine 300 750 400 Output, Quantitative 375 Blood Loss - Exam Lungs: bilateral: normal Chest: Normal S1, Normal S2 Extremities: Present: normal Abdomen: Present: normal appearance, soft. Absent: distention, tenderness Incision: Present: normal, dry, intact Uterus: Present: normal, firm Assessment and Plan Assessment: Postoperative day #1. Patient's resting complaints. Vital signs are stable she is afebrile. Uterus is firm nontender. She's having normal lochia. Incision is intact and dry. Patient does want to go home later today if possible. Currently she is tolerating regular diet, ambulating, urinating without difficulty. Plan is to check a CBC. Reevaluate after lunch and if she continues to well she could go home later today. (1) Group B streptococcal carriage complicating Current Visit: No Status: Acute Code(s): O99.820 - STREPTOCOCCUS B CARRIER STATE COMPLICATING SNOMED Code(s): 908137473626128 (2) 40 weeks gestation of Current Visit: No Status: Acute Code(s): Z3A.40 - 40 WEEKS GESTATION OF SNOMED Code(s): 25649620 (3) Previous delivery affecting Current Visit: No Status: Acute Code(s): O34.219 - MATERNAL CARE FOR UNSP TYPE SCAR FROM PREVIOUS DEL SNOMED Code(s): 647760500
[2021-05-14] MEDS: KETOROLAC 30 MG/ML 1 ML VIAL IVP SCH (07:02)
--- NOTE | 2021-05-14 07:12 | P.PN ---
Progress Note - Text Progress Note Date: 05/14/21 Patient seen and examined at bedside POD 1 s/p repeat with spinal duramorph. Patient reports pain well controlled. Patient able to ambulate without difficulty. Motor and sensory strength is back to baseline. Patient denies ALBERT, F/C, N/V. Will continue to follow.
[2021-05-14 08:04] VITALS: BP 114/72; PULSE 75; TEMP 98.2
[2021-05-14 08:46] LABS: Basophils % (A) 0 %; Eosinophils # (A) 0.1 k/uL (0-0.7); Eosinophils % (A) 1 %; HCT 43.6 % (34.0-46.0); Lymphocytes # (A) 1.6 k/uL (1.0-4.8); Lymphocytes % (A) 16 %; MCH 30.4 pg (25.0-35.0); MCV 94.8 fL (80.0-100.0); Mean Platelet Volume 9.7; Monocytes # (A) 0.4 k/uL (0-1.0); Monocytes % (A) 4 %; Neutrophils # (A) 7.6 k/uL (1.3-7.7); Neutrophils % (A) 78 %; Platelet Count 155 k/uL (150-450); RDW 12.5 % (11.5-15.5); WBC 9.8 k/uL (3.8-10.6)
[2021-05-14] MEDS: SENNOSIDES-DOCUSATE SODIUM 1 EACH TAB PO SCH (08:52)
--- NOTE | 2021-05-14 12:38 | P.DS ---
Providers Date of admission: 05/13/21 05:54 Expected date of discharge: 05/14/21 Attending physician: Hang Bermeo Primary care physician: Stated None - Discharge Diagnosis(es) (1) Group B streptococcal carriage complicating Current Visit: No Status: Acute (2) 40 weeks gestation of Current Visit: No Status: Acute (3) Previous delivery affecting Current Visit: No Status: Acute Hospital Course: Please see dictated H&P and operative note on this patient's admission. Brief summary is a pleasant 31-year-old 3 para 2 female 39-6/7 weeks gestation admitted to labor and delivery for elective repeat section. Patient undergoes above-named surgery for viable male . Please see dictated operative note. Postoperative and 1 patient wishes to go home. Is tolerating regular diet, urinating, ambulating without difficulty. CBC was completely normal. Patient's felt be stable for discharge home follow up with me in 1 week for an incision check and suture removal. Procedures: Repeat low transverse section Patient Condition at Discharge: Good Plan - Discharge Summary Discharge Rx Participant: No New Discharge Prescriptions: New Ibuprofen [Motrin] 600 mg PO Q6H PRN #40 tab PRN Reason: Pain oxyCODONE HCL [OxyIR] 5 mg PO Q4HR PRN #18 tab PRN Reason: Pain No Action Pnv,Calcium 72/Iron/Folic Acid [ Plus Tablet] 1 each PO DAILY Discharge Medication List Pnv,Calcium 72/Iron/Folic Acid [ Plus Tablet] 1 each PO DAILY 04/14/18 [History] Ibuprofen [Motrin] 600 mg PO Q6H PRN #40 tab 05/14/21 [Rx] oxyCODONE HCL [OxyIR] 5 mg PO Q4HR PRN #18 tab 05/14/21 [Rx] Follow up Appointment(s)/Referral(s): Hang Bermeo MD [STAFF PHYSICIAN] - 06/24/21 11:15 am (Incision check on 05/22/21@8:00am) Patient Instructions/Handouts: (DC) Activity/Diet/Wound Care/Special Instructions: No intercourse or anything per vagina for 6 weeks. No strenuous activity or heavy lifting for 6 weeks. Please call if any fever, chills, excessive vaginal bleeding, and/or abdominal pain. Discharge Disposition: HOME SELF-CARE
== END 2021-05-14 14:00 | disposition home or self-care (01) | DRG 788 ==
LOC: 4FBP 05:54
PROVIDERS: ADMIT Obstetrics & Gynecology; ATTEND Obstetrics & Gynecology
PROC: 10D00Z1 Extraction of Products of Conception, Low, Open Approach (ICD-10-PCS; principal; 2021-05-13 08:00)
DX: O34.211 Maternal care for low transverse scar from previous cesarean delivery (principal); O69.81X0 Labor and delivery complicated by cord around neck, without compression, not applicable or unspecified; O99.824 Streptococcus B carrier state complicating childbirth; O99.52 Diseases of the respiratory system complicating childbirth; J45.909 Unspecified asthma, uncomplicated; Z3A.40 40 weeks gestation of pregnancy; Z37.0 Single live birth
CPT/HCPCS: 85025; 86850; 86900; 86901

== ENCOUNTER 2022-10-17 05:55 | Inpatient (IN) | payer OTHER ==
[2022-10-13 08:51] VITALS: BMI 34.7
--- NOTE | 2022-10-16 07:56 | P.HPOB ---
History of Present Illness H&P Date: 10/16/22 Chief Complaint: Repeat section. This patient is a pleasant 32 yr female EDC 10/19/2022 estimated gestational age 39 5/7 weeks who presents to L&D for elective repeat section. has been uncomplicated. She has had 3 previous c/s and desires rep eat, no tubal ligation. Review of Systems Genitourinary: Reports Menstruation: Reports amenorrhea Past Medical History Past Medical History: Asthma, GERD/Reflux Additional Past Medical History / Comment(s): CELIAC DISORDER. History of Any Multi-Drug Resistant Organisms: None Reported Past Surgical History: Section Additional Past Surgical History / Comment(s): Section X3. Past Anesthesia/Blood Transfusion Reactions: Family History of Problems w/ Anesthesia, Postoperative Nausea & Vomiting (PONV) Additional Past Anesthesia/Blood Transfusion Reaction / Comment(s): "Mom could not have spinal the paralytic would not wear off." Patient gets nausea and vomiting immediately after receiving anesthesia. Past Psychological History: No Psychological Hx Reported Smoking Status: Never smoker Past Alcohol Use History: None Reported Past Drug Use History: None Reported - Past Family History Father Family Medical History: Cancer, Thyroid Disorder Additional Family Medical History / Comment(s): Prostate cancer. Mother Family Medical History: Cancer Additional Family Medical History / Comment(s): Breast cancer. Sister(s) Family Medical History: CVA/TIA, Seizure Disorder Additional Family Medical History / Comment(s): CVA - "genectically predisposed to blood clots". Medications and Allergies Home Medications Medication Instructions Recorded Confirmed Type Vit No.180/Iron/Folic 1 each PO DAILY 04/14/18 05/13/21 History [ Plus Tablet] Allergies Allergy/AdvReac Type Severity Reaction Status Date / Time No Known Allergies Allergy Verified 10/13/22 08:40 Exam - OBG Physical Exam Abdomen: bowel sounds normal, no diffuse tenderness, no bruit present, no guarding noted, no hepatomegaly, no splenomegaly, no mass Vulva: both: normal Vagina: normal moisture, no discharge Cervix: no lesion, no discharge Uterus: enlarged Results labs: O positive, rubella immune, RPR-HepB/C-HIV neg, Toxo negative, Glucola 69, GBS positive, Ultrasounds show normal growth and anatomy. Assessment and Plan Assessment: This is a pleasant 32 yr female estimated gestational age 39 5/7 weeks who presents to L&D for repeat section. Plan is repeat low transverse section. I have discussed this surgery and risks: infection, bleeding, possible injury to bowel, bladder, vessels, and/or other organs. All of her questions were answered and a written consent obtained. (1) 40 weeks gestation of Status: Acute Code(s): Z3A.40 - 40 WEEKS GESTATION OF SNOMED Code(s): 41575055 (2) Group B streptococcal carriage complicating Status: Acute Code(s): O99.820 - STREPTOCOCCUS B CARRIER STATE COMPLICATING SNOMED Code(s): 656097832257655 (3) Previous delivery affecting Status: Acute Code(s): O34.219 - MATERNAL CARE FOR UNSP TYPE SCAR FROM PREVIOUS DEL SNOMED Code(s): 999834602
[2022-10-17] MEDS ORDERED: METHYLERGONOVINE 0.2 MG/ML 1 ML AMP IM PRN (06:14)
[2022-10-17] MEDS ORDERED: LACTATED RINGERS 1,000 ML IV ONE (06:14)
[2022-10-17] MEDS ORDERED: CARBOPROST TROMETHAMINE 250 MCG/ML 1 ML AMP IM PRN (06:14)
[2022-10-17] MEDS ORDERED: CITRIC ACID-SODIUM CITRATE 15 ML CUP PO ONE (06:14)
[2022-10-17] MEDS ORDERED: TRANEXAMIC 1,000 MG/100ML-NACL 1,000 MG in EMPTY BAG 1 BAG IV PRN (06:14)
[2022-10-17] MEDS ORDERED: LACTATED RINGERS 1,000 ML IV SCH (06:14)
[2022-10-17] MEDS ORDERED: OXYTOCIN 10 UNIT/ML 1 ML VIAL IM PRN (06:14)
[2022-10-17] MEDS ORDERED: miSOPROStoL 200 MCG TAB PO PRN (06:14)
[2022-10-17 06:30] LABS: Basophils % (A) 0 %; Eosinophils # (A) 0.1 k/uL (0-0.7); Eosinophils % (A) 1 %; HCT 39.4 % (34.0-46.0); HGB 13.4 gm/dL (11.4-16.0); Lymphocytes # (A) 2.3 k/uL (1.0-4.8); Lymphocytes % (A) 24 %; MCH 30.2 pg (25.0-35.0); MCV 88.8 fL (80.0-100.0); Mean Platelet Volume 9.7; Monocytes # (A) 0.4 k/uL (0-1.0); Monocytes % (A) 5 %; Neutrophils # (A) 6.6 k/uL (1.3-7.7); Neutrophils % (A) 68 %; Platelet Count 154 k/uL (150-450); RBC 4.44 m/uL (3.80-5.40); RDW 13.4 % (11.5-15.5); WBC 9.7 k/uL (3.8-10.6)
[2022-10-17] MEDS ORDERED: fentaNYL (PF) 50 MCG/ML 2 ML AMP ONE (07:38)
[2022-10-17] MEDS ORDERED: KETOROLAC 15 MG/ML 1 ML VIAL ONE (07:38)
[2022-10-17] MEDS ORDERED: OXYTOCIN 30 UNITS/500 ML NS BAG IV ONE (07:38)
[2022-10-17] MEDS ORDERED: DEXAMETHASONE SOD PHOSPHATE 4 MG/ML 1 ML VIAL ONE (07:38)
[2022-10-17] MEDS ORDERED: MORPHINE SULFATE (PF) 0.3 MG/0.3 ML SYR ONE (07:38)
[2022-10-17] MEDS ORDERED: ONDANSETRON 4 MG/2 ML VIAL ONE (07:38)
[2022-10-17] MEDS ORDERED: NALBUPHINE 10 MG/ML (10 ML MDV) IV PRN (08:11)
[2022-10-17] MEDS ORDERED: KETOROLAC 15 MG/ML 1 ML VIAL IVP PRN (08:11)
[2022-10-17] MEDS ORDERED: MORPHINE SULFATE 2 MG/ML SYRINGE IVP PRN (08:11)
[2022-10-17] MEDS ORDERED: METOCLOPRAMIDE 5 MG/ML 2 ML VIAL IVP PRN ×2 (08:11→10:17)
[2022-10-17] MEDS ORDERED: ONDANSETRON 4 MG/2 ML VIAL IVP PRN ×2 (08:11→10:17)
[2022-10-17] MEDS ORDERED: NALOXONE 0.4 MG/ML 1 ML VIAL IV PRN ×2 (08:11→10:17)
[2022-10-17] MEDS ORDERED: diphenhydrAMINE 50 MG/ML 1 ML VIAL IVP PRN ×2 (08:11→10:17)
--- NOTE | 2022-10-17 08:34 | P.OP ---
Date of Procedure: 10/17/22 Preoperative Diagnosis: #1: 39-5/7 weeks' intrauterine . #2: Previous section 3 desires repeat. Postoperative Diagnosis: Same Procedure(s) Performed: Repeat low transverse section Anesthesia: spinal Surgeon: Hang Bermeo Supervisor Industrial Garment #1: Jennifer Hammond Estimated Blood Loss (ml): 600 Pathology: none sent Condition: stable Disposition: floor Indications for Procedure: Please see dictated H&P for intimate details of this patient's admission. Brief summary is a pleasant 32-year-old 4 para 3 female 39-5/7 weeks admitted to labor and delivery for elective repeat section. Patient understands the surgery and risks and risks of infection, bleeding, possible injury bowel, bladder, vessels, and/or other organs. All the patient's questions are answered and a written consent is obtained. Operative Findings: This is a vigorous viable male Apgars 9 and 9 delivery time is 0759 hours. has spontaneous respirations and good cry and grossly appears normal Description of Procedure: This patient has a Gaston catheter placed to straight drain. She is subsequently taken to the operating room where she sat up and spinal anesthetic is administered without incident. With an adequate level of anesthesia she has abdominal prep and drape. The appropriate timeout was done. Scalpels and taken the previous Pfannenstiel incision is excised. A second scalpel is taken down to the fascia and the fascia scored with the scalpel. Fascial incision extended bilaterally using the Harper scissors. Fascia is then dissected off the rectus muscles sharply. Rectus muscles are and the peritoneum identified and entered sharply. Peritoneal incision extended superior and inferior without difficulty. Bladder blade is then placed. Bladder peritoneum was taken sharply off the lower uterine segment. Scalpels then taken and a low transverse uterine incision is made. Using a hemostat I into the uterine cavity bluntly and there is loss of clear fluid. Incision is then extended bluntly. 's head is then gently guided through the incision with fundal pressure delivered. Mouth and nares are bulb suctioned. There is a nuchal cord 1. This is easily reduced. With more fundal pressure we then deliver the rest this infant's body. This is a vigorous viable male Apgars are 9 and 9 delivery time was 0759 hours. After delivery of the infant the umbilical cord is doubly clamped and cut appears to be trivascular. The placenta is then manually extracted intact. Uterus is then externalized and the uterine incision demarcated with Swenson clamps. Uterine incision is then closed using 0 Vicryl running locked fashion. Excellent hemostasis is noted I then removed excess fluid from the abdomen and pelvis. The uterus is placed back into the abdomen. Parietal peritoneum was identified and closed using a 3-0 Vicryl. Rectus muscles reapproximated in 0 Vicryl interrupted fashion. The fascia is then closed using 0 PDS. Fascial incision is intact and hemostatic. Subcutaneous tissues and closed using a 3-0 Vicryl. Skin is and closed using a 4-0 Monocryl and Steri-Strips are applied. Excellent hemostasis is noted. There are no complications. All counts are correct 3. Infant and mother are taken to her birthing suite in satisfactory condition.
[2022-10-17] MEDS ORDERED: OXYTOCIN 30 UNITS/500 ML NS 30 UNIT in SALINE 1 500ML.BAG IV SCH ×2 (08:45→10:17)
[2022-10-17] MEDS ORDERED: SIMETHICONE 80 MG CHEWABLE PO PRN (10:17)
[2022-10-17] MEDS ORDERED: diphenhydrAMINE 25 MG CAP PO PRN (10:17)
[2022-10-17] MEDS ORDERED: LANOLIN CREAM 5 GM TUBE TOPICAL PRN (10:17)
[2022-10-17] MEDS ORDERED: ZOLPIDEM 5 MG TAB PO PRN (10:17)
[2022-10-17] MEDS: KETOROLAC 15 MG/ML 1 ML VIAL IVP SCH ×2 (11:36→18:10)
[2022-10-17] MEDS: LACTATED RINGERS 1,000 ML IV SCH (14:25)
[2022-10-17] MEDS: SENNOSIDES-DOCUSATE SODIUM 1 EACH TAB PO SCH ×2 (14:50→20:49)
[2022-10-17] MEDS: ACETAMINOPHEN TAB 500 MG TAB PO SCH ×2 (15:13→21:44)
[2022-10-17 15:19] VITALS: RESP 16
[2022-10-17] MEDS: IBUPROFEN 600 MG TAB PO SCH (21:46)
[2022-10-18] MEDS: IBUPROFEN 600 MG TAB PO SCH ×3 (00:18→10:00)
[2022-10-18] MEDS: LACTATED RINGERS 1,000 ML IV SCH (00:38)
[2022-10-18] MEDS: ACETAMINOPHEN TAB 500 MG TAB PO SCH ×3 (04:12→13:00)
[2022-10-18 05:38] LABS: Basophils % (A) 0 %; Eosinophils # (A) 0.1 k/uL (0-0.7); Eosinophils % (A) 1 %; HCT 36.3 % (34.0-46.0); HGB 12.4 gm/dL (11.4-16.0); Lymphocytes # (A) 2.5 k/uL (1.0-4.8); Lymphocytes % (A) 25 %; MCH 30.6 pg (25.0-35.0); MCHC 34.1 g/dL (31.0-37.0); MCV 89.8 fL (80.0-100.0); Mean Platelet Volume 9.7; Monocytes # (A) 0.4 k/uL (0-1.0); Monocytes % (A) 4 %; Neutrophils # (A) 6.9 k/uL (1.3-7.7); Neutrophils % (A) 68 %; Platelet Count 143 k/uL (150-450); RBC 4.05 m/uL (3.80-5.40); RDW 13.5 % (11.5-15.5); WBC 10.2 k/uL (3.8-10.6)
[2022-10-18] MEDS: SENNOSIDES-DOCUSATE SODIUM 1 EACH TAB PO SCH (08:00)
[2022-10-18] MEDS: KETOROLAC 15 MG/ML 1 ML VIAL IVP SCH (08:28)
[2022-10-18] MEDS ORDERED: PRENATAL VIT-IRON-FOLIC ACID 1 EACH TABLET PO SCH (09:00)
--- NOTE | 2022-10-18 09:44 | P.DS ---
Providers Date of admission: 10/17/22 05:55 Expected date of discharge: 10/18/22 Attending physician: Hang Bermeo Primary care physician: Stated None - Discharge Diagnosis(es) (1) Status post repeat low transverse section Current Visit: Yes Status: Acute Hospital Course: Patient presented for repeat low transverse . She underwent this procedure without complication. Postoperative course has been uneventful. She denies nausea, vomiting, just become sugars of breath or calf pain. She is tolerating regular diet passing flatus and her lochia is minimal. Her pain is well-controlled with Motrin and Tylenol. Patient will be discharged home postoperative day #1 in stable condition to follow-up with Dr. Bermeo in one week. Plan - Discharge Summary Discharge Rx Participant: Yes New Discharge Prescriptions: New oxyCODONE HCL [OxyIR] 5 mg PO Q4HR PRN #18 tab PRN Reason: Pain Scale 4 - 6 Ibuprofen [Motrin] 600 mg PO Q6H #40 tab No Action Vit No.180/Iron/Folic [ Plus Tablet] 1 each PO DAILY Discharge Medication List Vit No.180/Iron/Folic [ Plus Tablet] 1 each PO DAILY 04/14/18 [History] Ibuprofen [Motrin] 600 mg PO Q6H #40 tab 10/17/22 [Rx] oxyCODONE HCL [OxyIR] 5 mg PO Q4HR PRN #18 tab 10/17/22 [Rx] Follow up Appointment(s)/Referral(s): Hang Bermeo MD [STAFF PHYSICIAN] - 11/28/22 9:30 am (Post Op Appointment 10-24-2022 at 9:15) Patient Instructions/Handouts: (DC) Activity/Diet/Wound Care/Special Instructions: No heavy lifting or strenuous activity for 6 weeks. No intercourse or anything per vagina for 6 weeks. Please call if any fever, chills, excessive vaginal bleeding, and/or abdominal pain Discharge Disposition: HOME SELF-CARE
[2022-10-18 16:40] VITALS: BP 121/65; PULSE 82; TEMP 98
== END 2022-10-18 17:15 | disposition home or self-care (01) | DRG 788 ==
LOC: 4FBP 05:55
PROVIDERS: ADMIT Obstetrics & Gynecology; ATTEND Obstetrics & Gynecology
PROC: 10D00Z1 Extraction of Products of Conception, Low, Open Approach (ICD-10-PCS; principal; 2022-10-17 08:00)
DX: O34.211 Maternal care for low transverse scar from previous cesarean delivery (principal); O99.52 Diseases of the respiratory system complicating childbirth; O99.824 Streptococcus B carrier state complicating childbirth; J45.909 Unspecified asthma, uncomplicated; Z37.0 Single live birth; O99.62 Diseases of the digestive system complicating childbirth; K90.0 Celiac disease; Z3A.39 39 weeks gestation of pregnancy
CPT/HCPCS: 85025; 86850; 86900; 86901